=== PATIENT | female | born 1990 | race Caucasian/White ===

== ENCOUNTER → 2018-08-10 | Outpatient (REF) | payer SELFPAY ==
[2018-08-10 21:17] LABS: BASO # 0.1 10^3/uL (0.0-0.2); BASO % 0.5 % (0.0-1.0); EOS # 0.2 10^3/uL (0.0-0.50); EOS % 1.7 % (0.0-3.0); HEMATOCRIT 41.1 % (36.0-47.0); HEMOGLOBIN 13.4 g/dl (12.0-15.5); LYMPH # 2.9 10^3/uL (1.5-6.5); MEAN CORPUSCULAR HEMOGLOBIN 30.4 pg (27.0-33.0); MEAN CORPUSCULAR HGB CONC 32.6 g/dl (32.0-36.5); MEAN CORPUSCULAR VOLUME 93.2 fl (80.0-96.0); MONO # 0.6 10^3/uL (0.0-0.8); MONO % 5.8 % (0.0-5.0); NEUTROPHILS # 5.7 10^3/uL (1.8-7.7); NEUTROPHILS % 60.7 % (36.0-66.0); PLATELET COUNT, AUTOMATED 302 10^3/uL (150-450); RED BLOOD COUNT 4.41 10^6/uL (4.00-5.40); WHITE BLOOD COUNT 9.4 10^3/uL (4.0-10.0)
[2018-08-10 21:21] LABS: ALBUMIN 3.9 GM/DL (3.2-5.2); ALT/SGPT 27 U/L (12-78); BILIRUBIN,TOTAL 0.4 MG/DL (0.2-1.0); BLOOD UREA NITROGEN 8 MG/DL (7-18); CALCIUM LEVEL 8.8 MG/DL (8.5-10.1); CARBON DIOXIDE LEVEL 27 MEQ/L (21-32); CHLORIDE LEVEL 105 MEQ/L (98-107); CHOLESTEROL LEVEL 213 MG/DL (<200); CHOLESTEROL RISK RATIO 3.944 (<5); CREATININE FOR GFR 0.64 MG/DL (0.55-1.30); FREE T4 0.97 NG/DL (0.76-1.46); GLOMERULAR FILTRATION RATE > 60.0 (>60); GLUCOSE, FASTING 79 MG/DL (70-100); HDL CHOLESTEROL 54 MG/DL (>40); LDL CHOLESTEROL 142 MG/DL (<100); NON-HDL-C 159 MG/DL; POTASSIUM SERUM 3.9 MEQ/L (3.5-5.1); SODIUM LEVEL 140 MEQ/L (136-145); TOTAL PROTEIN 7.6 GM/DL (6.4-8.2); TRIGLYCERIDES LEVEL 84 MG/DL (<150)
[2018-08-10 21:29] LABS: HEMOGLOBIN A1c 5.4 %
== END ==
LOC: M LAB REF 14:05
PROVIDERS: ATTEND Physician Assistant
DX: Z13.29 Encounter for screening for other suspected endocrine disorder (principal)

== ENCOUNTER → 2018-12-23 | Outpatient (REF) | payer OTHER | LOC: M LAB REF 09:15 | PROVIDERS: ATTEND Physician Assistant Medical | DX: N39.0 Urinary tract infection, site not specified (principal) ==

== ENCOUNTER → 2019-03-12 | Outpatient (REF) | payer OTHER | LOC: M LAB REF 13:29 | PROVIDERS: ATTEND Obstetrics & Gynecology | DX: O36.80X0 Pregnancy with inconclusive fetal viability, not applicable or unspecified (principal) ==

== ENCOUNTER → 2019-03-14 | Outpatient (REF) | payer OTHER ==
[2019-03-14 13:08] LABS: HEMATOCRIT 41.7 % (36.0-47.0); HEMOGLOBIN 13.2 g/dl (12.0-15.5); MEAN CORPUSCULAR HEMOGLOBIN 29.2 pg (27.0-33.0); MEAN CORPUSCULAR HGB CONC 31.7 g/dl (32.0-36.5); MEAN CORPUSCULAR VOLUME 92.3 fl (80.0-96.0); PLATELET COUNT, AUTOMATED 294 10^3/uL (150-450); RED BLOOD COUNT 4.52 10^6/uL (4.00-5.40); WHITE BLOOD COUNT 6.8 10^3/uL (4.0-10.0)
[2019-03-14 14:24] LABS: HCG, SERUM QUANTITATIVE 105871 MIU/ML
[2019-03-15 11:21] LABS: RUBELLA IgG QUALITATIVE IMMUNE (IMMUNE)
[2019-03-15 11:50] LABS: HEPATITIS C VIRUS ABY INDEX 0.2 INDEX (<0.8); HIV 1&2 SCREEN CENTAUR NEGATIVE (NEGATIVE)
== END ==
LOC: M LABDRWAD 12:32
PROVIDERS: ATTEND Obstetrics & Gynecology
DX: O36.80X0 Pregnancy with inconclusive fetal viability, not applicable or unspecified (principal); Z3A.00 Weeks of gestation of pregnancy not specified

== ENCOUNTER → 2019-03-18 | Outpatient (CLI) | payer OTHER ==
--- NOTE | 2019-03-18 10:21 | REP ---
Clinical: Dating and viability. Technique: Transabdominal first trimester obstetrical ultrasound with color Doppler evaluation. Findings: Ultrasound examination demonstrates a single live early intrauterine . Gestational sac with yolk sac and pole identified. CRL of 24 mm corresponds to 9 weeks 1 day gestational age with estimated date of delivery 10/20/2019. heart rate equals 170 bpm. No gross abnormalities are identified. Impression: Single live early intrauterine and 9 weeks 1 day gestational age. Complete anatomical assessment should be performed at 19-20 weeks. Electronically Signed by Amandeep Salinas MD 03/18/2019 10:12 A
== END ==
LOC: M RAD 09:13
PROVIDERS: ATTEND Obstetrics & Gynecology
DX: Z36.9 Encounter for antenatal screening, unspecified (principal); Z3A.09 9 weeks gestation of pregnancy

== ENCOUNTER → 2019-07-05 | Outpatient (CLI) | payer OTHER ==
[2019-07-05 17:13] LABS: HEMATOCRIT 33.5 % (36.0-47.0); HEMOGLOBIN 11.1 g/dl (12.0-15.5); MEAN CORPUSCULAR HGB CONC 33.1 g/dl (32.0-36.5); MEAN CORPUSCULAR VOLUME 93.6 fl (80.0-96.0); PLATELET COUNT, AUTOMATED 304 10^3/uL (150-450); RED BLOOD COUNT 3.58 10^6/uL (4.00-5.40); WHITE BLOOD COUNT 12.4 10^3/uL (4.0-10.0)
== END ==
LOC: M PLALAB 12:45
PROVIDERS: ATTEND Obstetrics & Gynecology
DX: Z34.02 Encounter for supervision of normal first pregnancy, second trimester (principal); Z36.89 Encounter for other specified antenatal screening

== ENCOUNTER → 2019-09-26 | Outpatient (REF) | payer OTHER | LOC: M LAB REF 12:20 | PROVIDERS: ATTEND Obstetrics & Gynecology | DX: Z34.03 Encounter for supervision of normal first pregnancy, third trimester (principal) ==

== ENCOUNTER 2019-10-22 16:50 | Inpatient (IN) | payer OTHER ==
[2019-10-22] MEDS ORDERED: miSOPROStol 50 MCG 1/2 TAB (S0191) As Ordered ONE ×2 (18:08→22:54)
[2019-10-22] MEDS ORDERED: miSOPROStol 50 MCG 1/2 TAB (S0191) ONE ×2 (18:08→23:54)
[2019-10-22] MEDS ORDERED: FENTANYL 2MCG/ML ROPIVACAINE 0.2% IN 0.9% NACL 100ML IVBAG As Ordered ONE (21:32)
[2019-10-22] MEDS ORDERED: FENTANYL 2MCG/ML ROPIVACAINE 0.2% IN 0.9% NACL 100ML IVBAG ONE (21:32)
[2019-10-23] MEDS ORDERED: OXYTOCIN 30 UNITS IN 0.9% NaCl 500ML IV BAG (J2590) ONE ×2 (01:03→07:16)
[2019-10-23] MEDS ORDERED: OXYTOCIN 30 UNITS IN 0.9% NaCl 500ML IV BAG (J2590) As Ordered ONE ×2 (01:03→07:16)
[2019-10-23] MEDS ORDERED: miSOPROStol 50 MCG 1/2 TAB (S0191) As Ordered ONE (02:51)
[2019-10-23] MEDS ORDERED: miSOPROStol 50 MCG 1/2 TAB (S0191) ONE (02:51)
[2019-10-23] MEDS ORDERED: FENTANYL 2MCG/ML ROPIVACAINE 0.2% IN 0.9% NACL 100ML IVBAG ONE (02:55)
[2019-10-23] MEDS ORDERED: FENTANYL 2MCG/ML ROPIVACAINE 0.2% IN 0.9% NACL 100ML IVBAG As Ordered ONE (02:55)
[2019-10-23] MEDS ORDERED: ePHEDrine SULFATE 25 MG/5 ML(5MG/ML) SYRINGE ONE ×2 (04:47→07:57)
[2019-10-23] MEDS ORDERED: ePHEDrine SULFATE 25 MG/5 ML(5MG/ML) SYRINGE As Ordered ONE ×2 (04:47→07:57)
[2019-10-23] MEDS ORDERED: ACETAMINOPHEN 500 MG TAB ONE (14:39)
[2019-10-23] MEDS ORDERED: ACETAMINOPHEN 500 MG TAB As Ordered ONE (14:39)
[2019-10-23] MEDS ORDERED: IBUPROFEN 800 MG TAB ONE ×2 (15:31→19:48)
[2019-10-23] MEDS ORDERED: IBUPROFEN 800 MG TAB As Ordered ONE (15:31)
[2019-10-23] MEDS ORDERED: ANUSOL HC CREAM 30GM As Ordered ONE (16:41)
[2019-10-23] MEDS ORDERED: ANUSOL HC CREAM 30GM ONE (16:41)
[2019-10-23] MEDS ORDERED: DOCUSATE SODIUM 100 MG CAP ONE (18:27)
[2019-10-23] MEDS ORDERED: DOCUSATE SODIUM 100 MG CAP As Ordered ONE (18:27)
[2019-10-24] MEDS ORDERED: IBUPROFEN 800 MG TAB ONE ×3 (03:13→12:44)
[2019-10-24] MEDS ORDERED: IBUPROFEN 800 MG TAB As Ordered ONE ×3 (03:13→12:44)
[2019-10-24] MEDS ORDERED: BOOSTRIX/ADACEL VACCINE (DIPHTH/PERTUSS/ACELL/TETANUS) 0.5ML SYR As Ordered ONE (08:52)
[2019-10-24] MEDS ORDERED: BOOSTRIX/ADACEL VACCINE (DIPHTH/PERTUSS/ACELL/TETANUS) 0.5ML SYR ONE (08:52)
[2019-10-25] MEDS ORDERED: IBUPROFEN 800 MG TAB As Ordered ONE ×2 (02:53→05:19)
[2019-10-25] MEDS ORDERED: IBUPROFEN 800 MG TAB ONE ×2 (02:53→05:19)
--- NOTE | 2019-11-28 10:01 | DN ---
DATE OF DELIVERY: 10/23/2019 Nguyễn is a 28-year-old female, 1, para 0, who was admitted at 40-3/7 weeks gestation for an induction. She underwent Cytotec followed by Pitocin. She then progressed to fully dilated after an epidural. She pushed and delivered a live female infant in left occiput anterior position with a nuchal cord times one. scores 8 and 9, weight 7 pounds 1 ounce. A second-degree midline perineal laceration was noted, which was repaired using 2-0 chromic. Estimated blood loss 300 mL. Both mother and baby in stable condition. [facility]
--- NOTE | 2019-12-23 09:46 | HPE ---
DATE OF ADMISSION: 10/22/2019 ADMITTING DIAGNOSIS: HISTORY OF PRESENT ILLNESS: Lucila is a 28-year-old female 1, para 0 with an estimated date of confinement (EDC) of 10/20/2019, estimated gestational age (EGA) of 40 2/7 weeks gestation, who is being admitted of induction. Upon admission, no bleeding, no leakage of fluid, good movement. Her record reviewed, which was essentially unremarkable. lab: Blood type is A positive. Her rubella is immune. Hepatitis negative. HIV negative. GC/chlamydia negative. One hour sugar testing was within normal limits. GBS negative. PAST MEDICAL HISTORY: Significant for chicken pox. PAST SURGICAL HISTORY: Tooth extraction, cholecystectomy. SOCIAL HISTORY: The patient is . Denies any alcohol, drug or cigarette smoking. FAMILY HISTORY: Significant for bladder and breast cancer. REVIEW OF SYSTEMS: Unremarkable. MEDICATIONS: vitamins. ALLERGIES: No known drug allergy. PHYSICAL EXAMINATION: Normal appearing female in no acute distress. Abdomen: Soft, nontender, non-distended Extremities: No clubbing, cyanosis or edema. Vaginal examination: Finger tip, 50% efface, fetus in a vertex position at -3 to -4 position. Tracing reviewed, category 1 tracing noted with a low heart rate, baseline in the 110s to 115s. Irregular contractions. ASSESSMENT: Intrauterine at 40 2/7 weeks gestation. Being admitted for an induction. PLAN: The patient is admitted to labor and delivery. Induction process discussed with the patient in detail, as well as risks and benefits. Routine labs sent. Pain management discussed. The patient opt for an epidural. Will continue to monitor and anticipate delivery. [facility]
[2020-01-17 10:30] LABS: CORD GAS ABE A -5.9; CORD GAS HCO3 A 19.2 MEQ/L; CORD GAS O2 SAT A 69.7 %; CORD GAS PCO2 A 37.1 mmHg; CORD GAS PH A 7.332 UNITS; CORD GAS PO2 A 28.9 mmHg; CORD GAS TCO2 A 20.3 MEQ/L
[2020-01-17 10:31] LABS: CORD GAS HCO3 V 21.8 MEQ/L; CORD GAS PCO2 V 58.7 mmHg; CORD GAS PH V 7.188 UNITS; CORD GAS PO2 V 27.2 mmHg; CORD GAS TCO2 V 23.6 MEQ/L
[2020-01-17 10:32] LABS: CORD GAS ABE V -7.4; CORD GAS O2 SAT V 52.6 %; CORD GAS SBC V 17.6 MEQ/L
[2020-01-21 11:02] LABS: HEMATOCRIT 33.2 % (36.0-47.0); HEMOGLOBIN 10.6 g/dl (12.0-15.5); RED BLOOD COUNT 3.71 10^6/uL (4.00-5.40); WHITE BLOOD COUNT 11.5 10^3/uL (4.0-10.0)
[2020-01-21 11:03] LABS: MEAN CORPUSCULAR HEMOGLOBIN 28.6 pg (27.0-33.0); MEAN CORPUSCULAR HGB CONC 31.9 g/dl (32.0-36.5); MEAN CORPUSCULAR VOLUME 89.5 fl (80.0-96.0); PLATELET COUNT, AUTOMATED 228 10^3/uL (150-450)
== END 2019-10-25 07:28 | disposition home or self-care (01) | DRG 560 ==
LOC: M PED 16:50
PROVIDERS: ADMIT Obstetrics & Gynecology; ATTEND Obstetrics & Gynecology
PROC: 3E033VJ Introduction of Other Hormone into Peripheral Vein, Percutaneous Approach (ICD-10-PCS; 2019-10-22)
PROC: 3E0DXGC Introduction of Other Therapeutic Substance into Mouth and Pharynx, External Approach (ICD-10-PCS; 2019-10-22)
PROC: 10E0XZZ Delivery of Products of Conception, External Approach (ICD-10-PCS; principal; 2019-10-23)
PROC: 0HQ9XZZ Repair Perineum Skin, External Approach (ICD-10-PCS; 2019-10-23)
DX: O48.0 Post-term pregnancy (principal); O69.81X0 Labor and delivery complicated by cord around neck, without compression, not applicable or unspecified; Z37.0 Single live birth; Z3A.40 40 weeks gestation of pregnancy; O70.1 Second degree perineal laceration during delivery

== ENCOUNTER → 2021-10-28 | Outpatient (REF) | payer OTHER ==
[2021-10-28 12:49] LABS: HEMATOCRIT 42.5 % (36.0-47.0); HEMOGLOBIN 13.7 g/dl (12.0-15.5); MEAN CORPUSCULAR HEMOGLOBIN 29.4 pg (27.0-33.0); MEAN CORPUSCULAR HGB CONC 32.2 g/dl (32.0-36.5); MEAN CORPUSCULAR VOLUME 91.2 fl (80.0-96.0); PLATELET COUNT, AUTOMATED 286 10^3/uL (150-450); RED BLOOD COUNT 4.66 10^6/uL (4.00-5.40); WHITE BLOOD COUNT 7.5 10^3/uL (4.0-10.0)
[2021-10-28 14:12] LABS: HCG, SERUM QUANTITATIVE 103 MIU/ML
[2021-10-28 15:26] LABS: HEPATITIS C VIRUS ABY INDEX < 0.0 INDEX (<0.8); HIV 1&2 SCREEN CENTAUR NEGATIVE (NEGATIVE)
[2021-10-28 15:28] LABS: HEPATITIS B SURFACE ANTIGEN NEGATIVE (NEGATIVE)
== END ==
LOC: M LAB REF 12:18
PROVIDERS: ATTEND Obstetrics & Gynecology
DX: Z32.01 Encounter for pregnancy test, result positive (principal); O36.80X0 Pregnancy with inconclusive fetal viability, not applicable or unspecified

== ENCOUNTER → 2021-11-15 | Outpatient (REF) | payer OTHER | LOC: M LAB REF 16:02 | PROVIDERS: ATTEND Advanced Practice Midwife | DX: O36.80X0 Pregnancy with inconclusive fetal viability, not applicable or unspecified (principal) ==

== ENCOUNTER → 2022-03-22 | Outpatient (CLI) | payer OTHER | LOC: M WHC 13:03 | PROVIDERS: ATTEND Advanced Practice Midwife | DX: Z34.82 Encounter for supervision of other normal pregnancy, second trimester (principal) ==

== ENCOUNTER → 2022-04-12 | Outpatient (CLI) | payer OTHER ==
[2022-04-12 11:03] LABS: HEMATOCRIT 32.7 % (36.0-47.0); HEMOGLOBIN 10.4 g/dl (12.0-15.5); MEAN CORPUSCULAR HEMOGLOBIN 30.8 pg (27.0-33.0); MEAN CORPUSCULAR HGB CONC 31.8 g/dl (32.0-36.5); MEAN CORPUSCULAR VOLUME 96.7 fl (80.0-96.0); PLATELET COUNT, AUTOMATED 255 10^3/uL (150-450); RED BLOOD COUNT 3.38 10^6/uL (4.00-5.40); WHITE BLOOD COUNT 8.3 10^3/uL (4.0-10.0)
== END ==
LOC: M PLALAB 07:29
PROVIDERS: ATTEND Obstetrics & Gynecology
DX: Z34.82 Encounter for supervision of other normal pregnancy, second trimester (principal)

== ENCOUNTER → 2022-06-07 | Outpatient (REF) | payer OTHER | LOC: M LAB REF 16:13 | PROVIDERS: ATTEND Obstetrics & Gynecology | DX: Z34.83 Encounter for supervision of other normal pregnancy, third trimester (principal) ==